=== PATIENT | male | born 1965 | race Caucasian/White ===

== ENCOUNTER 2017-09-06 12:57 | Emergency (ER) | payer BC ==
[2017-09-06 13:54] VITALS: BP 128/77
--- NOTE | 2017-09-06 14:18 | UC ---
Eye Complaint HPI - HPI Summary HPI Summary: BILATERAL EYE REDNESS AND DISCHARGE, LASTING TEN DAYS. INITIALLY HAD CONGESTION , COUGH, AND SORE THROAT, THESE SYMPTOMS RESOLVED BUT EYE REDNESS AND DISCHARGE CONTINUE. NO PAIN WITH EYE MOVEMENT. - History of Current Complaint Chief Complaint: UCEye Stated Complaint: BILAT. EYE IRRITATION Time Seen by Provider: 09/06/17 13:58 Hx Obtained From: Patient, Family/Adjustment Clerk Onset/Duration: Gradual Onset, Lasting Weeks Timing: Intermittent Episode Lasting Severity Initially: Mild Severity Currently: Moderate Location of Injury: Conjunctiva Character: Dull Aggravating Factor(s): Nothing Alleviating Factor(s): Nothing Associated Signs And Symptoms: Positive: Drainage (Purulent) - Risk Factors Penetrating Injury Risk Factor: Negative Acute Glaucoma Risk Factors: Negative - Allergies/Home Medications Allergies/Adverse Reactions: Allergies Allergy/AdvReac Type Severity Reaction Status Date / Time No Known Allergies Allergy Verified 09/06/17 13:49 PMH/Surg Hx/FS Hx/Imm Hx Previously Healthy: Yes - Surgical History Surgical History: Yes Surgery Procedure, Year, and Place: Right Herniorrhaphy - Family History Known Family History: Negative: Blood Disorder - Social History Occupation: Employed Full-time Lives: With Family Alcohol Use: Rare Alcohol Amount: "couple beers a week" Substance Use Type: None Smoking Status (MU): Never Smoked Tobacco - Immunization History Most Recent Influenza Vaccination: no Review of Systems Constitutional: Negative Skin: Negative Eyes: Drainage, Eye Redness ENT: Negative Respiratory: Negative Cardiovascular: Negative Gastrointestinal: Negative Genitourinary: Negative Motor: Negative Neurovascular: Negative Musculoskeletal: Negative Neurological: Negative Psychological: Negative Is Patient Immunocompromised?: No All Other Systems Reviewed And Are Negative: Yes Physical Exam Triage Information Reviewed: Yes Appearance: Well-Appearing, No Pain Distress, Well-Nourished Vital Signs: Initial Vital Signs Temp 97 F 09/06/17 13:49 Pulse 57 09/06/17 13:49 Resp 16 09/06/17 13:49 BP 128/77 09/06/17 13:49 Pulse Ox 99 09/06/17 13:49 Vital Signs Reviewed: Yes Eyes: Positive: Conjunctiva Inflamed, Discharge ENT Exam: Normal ENT: Positive: Normal ENT inspection, Hearing grossly normal, Pharynx normal, TMs normal Dental Exam: Normal Neck exam: Normal Neck: Positive: Supple, Nontender, No Lymphadenopathy Respiratory Exam: Normal Respiratory: Positive: Chest non-tender, Lungs clear, Normal breath sounds, No respiratory distress, No accessory muscle use Cardiovascular Exam: Normal Cardiovascular: Positive: RRR, No Murmur, Pulses Normal Abdominal Exam: Normal Abdomen Description: Positive: Nontender, No Organomegaly Musculoskeletal Exam: Normal Musculoskeletal: Positive: Strength Intact, ROM Intact Neurological Exam: Normal Psychological Exam: Normal Skin Exam: Normal Eye Complaint Course/Dx - Differential Dx/Diagnosis Differential Diagnosis/HQI/PQRI: Conjunctivitis Provider Diagnoses: BILATERAL CONJUNCTIVITIS Discharge - Discharge Plan Condition: Stable Disposition: HOME Prescriptions: Tobramycin 0.3% OPHTH.EVAN* 1 drop BOTH EYES Q4H #1 btl Patient Education Materials: Conjunctivitis (ED) Forms: *Work Release Referrals: [facility] [Outside] No Primary Care Phys,NOPCP [Primary Care Provider] - Oleksandr Coffey MD [Medical Doctor] -
== END 2017-09-06 14:21 | disposition home or self-care (01) ==
LOC: UCCORT 12:57
DX: H10.33 Unspecified acute conjunctivitis, bilateral (principal)
CPT/HCPCS: 99202; G0463

== ENCOUNTER 2018-01-20 13:21 | Emergency (ER) | payer BC ==
--- NOTE | 2018-01-20 13:55 | UC ---
Respiratory Complaint HPI - HPI Summary HPI Summary: Pt presents with midsternal chest "soreness" for the last 3 weeks. He was seen by a provider (not his PCP) for a work physical where an EKG, UA, and basic labwork were done as part of the requirements. The EKG was normal per him, but he was told the labwork indicated that he "may be fighting an infection" and was told to be seen by his PCP. His PCP is booking at least 1 month out, so he came to . He tells me that he does a lot of heavy lifting and moving of large objects - and about 3 weeks ago remembers being particularly busy doing these types of activities, but denies specific injury. He describes the sensation as a "soreness" and says it is not painful, just feels achy. Denies fever, chills, sore throat, SOB, chest pain, MONSALVE, abdominal pain, n/v/d/c. He feels well otherwise. - History of Current Complaint Stated Complaint: UPPER RESPIRATORY Time Seen by Provider: 01/20/18 13:55 Hx Obtained From: Patient Onset/Duration: Gradual Onset Severity Initially: Mild Severity Currently: Mild Pain Intensity: 2 Pain Scale Used: 0-10 Numeric - Allergies/Home Medications Allergies/Adverse Reactions: Allergies Allergy/AdvReac Type Severity Reaction Status Date / Time No Known Allergies Allergy Verified 01/20/18 13:55 Home Medications: Home Medications NK [No Home Medications Reported] 01/20/18 [History Confirmed 01/20/18] PMH/Surg Hx/FS Hx/Imm Hx - Additional Past Medical History Additional PMH: None Previously Healthy: Yes - Surgical History Surgical History: Yes Surgery Procedure, Year, and Place: Right Herniorrhaphy - Family History Known Family History: Negative: Blood Disorder - Social History Occupation: Employed Full-time Lives: With Family Alcohol Use: Rare Alcohol Amount: "couple beers a week" Substance Use Type: None Smoking Status (MU): Never Smoked Tobacco - Immunization History Most Recent Influenza Vaccination: no Review of Systems Constitutional: Negative Skin: Negative Eyes: Negative ENT: Negative Respiratory: Negative Cardiovascular: Negative Gastrointestinal: Negative Genitourinary: Negative Neurovascular: Negative Musculoskeletal: Other: - Chest "soreness" Neurological: Negative Psychological: Negative All Other Systems Reviewed And Are Negative: Yes Physical Exam - Summary Physical Exam Summary: GENERAL: NAD. WDWN. No pain distress. SKIN: No rashes, sores, ulcers, masses, lesions. HEENT: Head: AT/NC Eyes: PERRLA. EOM intact. Conjunctiva clear without inflammation or discharge. Ears: Hearing grossly normal. TMs intact, no bulging, erythema, or edema. Nose: Nasal mucosa pink and moist. NTTP maxillary and frontal sinus. Throat: Posterior oropharynx without exudates, erythema, or tonsillar enlargement. Uvula midline. NECK: Supple. Nontender. No lymphadenopathy. CHEST: CTAB. No r/r/w. No accessory muscle use. Breathing comfortably and in no distress. CV: RRR. Without m/r/g. Pulses intact. Brisk cap refill. ABDOMEN: Soft. NTTP. No distention or guarding., No organomegaly. No CVA tenderness. Bowel sounds present x4. MSK: FROM and 5/5 strength B/L UEs and LEs. NTTP over area of chest "soreness" NEURO: Alert. CN II-XII grossly intact. PSYCH: Age appropriate behavior. Triage Information Reviewed: Yes Respiratory Course/Dx - Course Course Of Treatment: CXR: IMPRESSION: No active cardiopulmonary disease is noted. I am unsure the etiology of his chest "soreness", but given his prolonged symptoms, healthy PMH, recent WNL EKG, and no cardiac risk factors - I advised him to schedule a follow up with his PCP for his next available appointment. - Differential Dx/Diagnosis Provider Diagnoses: Chest "soreness" Discharge - Sign-Out/Discharge Documenting (check all that apply): Discharge/Admit/Transfer - Discharge Plan Condition: Stable Disposition: HOME Referrals: Evangelist Paniagua MD [Primary Care Provider] - Additional Instructions: If you develop a fever, shortness of breath, chest pain, new or worsening symptoms - please call your PCP or go to the ED. 1) Please schedule a follow up appointment with your PCP regarding your ongoing chest soreness and recent labwork - Billing Disposition and Condition Condition: STABLE Disposition: HOME
[2018-01-20 13:58] VITALS: BP 117/65
--- NOTE | 2018-01-20 14:30 | RAD ---
Indication: Cough. 2 views of the chest including dual energy PA views demonstrates no mediastinal shift. Heart is of normal size and configuration. Lung leach are clear. IMPRESSION: No active cardiopulmonary disease is noted.
== END 2018-01-20 14:53 | disposition home or self-care (01) ==
LOC: UCCORT 13:21
DX: R07.89 Other chest pain (principal)
CPT/HCPCS: 71046; 99211; G0463

== ENCOUNTER 2019-01-08 07:42 | Emergency (ER) | payer BC ==
[2019-01-08 08:12] VITALS: BP 118/72
--- NOTE | 2019-01-08 08:21 | UC ---
Respiratory Complaint HPI - HPI Summary HPI Summary: 53 -year-old male had cold symptoms presently one month ago. The only thing that did not resolve was a dry cough. He states over the past week he has felt more chest congestion and a productive cough of sputum. He denies any shortness of breath sitting and talking with me. He states he feels some mid chest tightness when he coughs. He denies any recent fever or chills. He does work as a computer equipment repairer. - History of Current Complaint Chief Complaint: UCGeneralIllness Stated Complaint: COUGH,CONGESTION Time Seen by Provider: 01/08/19 08:16 Hx Obtained From: Patient Onset/Duration: Gradual Onset Timing: Intermittent Episodes Severity Initially: Mild Severity Currently: Mild Pain Intensity: 0 Character: Cough: Productive - Productive cough up yellow sputum. Alleviating Factors: Nothing Associated Signs And Symptoms: Positive: URI - Upper Respiratory illness approximately one month ago with a dry cough that did not resolve. States the cough and chest congestion returned over the past week.. Negative: Dyspnea, Fever, Chills, Pleuritic Chest Pain, Wheezing - No pain on deep inspiration - Risk Factors Pulmonary Embolism Risk Factors: Negative Cardiac Risk Factors: Negative Pseudomonas Risk Factors: Negative Tuberculosis Risk Factors: Negative - Allergies/Home Medications Allergies/Adverse Reactions: Allergies Allergy/AdvReac Type Severity Reaction Status Date / Time No Known Allergies Allergy Verified 01/08/19 08:12 PMH/Surg Hx/FS Hx/Imm Hx Previously Healthy: Yes Respiratory History: Other - Patient states he has been told he has pre-asthma. - Surgical History Surgical History: Yes Surgery Procedure, Year, and Place: Right Herniorrhaphy - Family History Known Family History: Positive: Other - Both parents of cancer. Negative: Blood Disorder - Social History Occupation: Employed Full-time - Works as a computer equipment repairer. Alcohol Use: Rare Alcohol Amount: "couple beers a week" Substance Use Type: None Smoking Status (MU): Never Smoked Tobacco - Immunization History Most Recent Influenza Vaccination: no Review of Systems All Other Systems Reviewed And Are Negative: Yes Respiratory: Positive: Cough - Productive cough with yellow sputum. Chest congestion and tightness with coughing. No shortness of breath. Pain on deep inspiration. Is Patient Immunocompromised?: No Physical Exam Triage Information Reviewed: Yes Appearance: Well-Appearing, No Pain Distress, Well-Nourished Vital Signs: Initial Vital Signs Temp 98.1 F 01/08/19 08:07 Pulse 60 01/08/19 08:07 Resp 16 01/08/19 08:07 BP 118/72 01/08/19 08:07 Pulse Ox 99 01/08/19 08:07 Vital Signs Reviewed: Yes Eye Exam: Normal ENT Exam: Normal Neck: Positive: Supple, Nontender, No Lymphadenopathy Respiratory: Positive: Lungs clear, Normal breath sounds, No respiratory distress, No accessory muscle use Cardiovascular: Positive: RRR, No Murmur, Pulses Normal, Brisk Capillary Refill Abdomen Description: Positive: Nontender, No Organomegaly, Soft Bowel Sounds: Positive: Present Musculoskeletal Exam: Normal Neurological Exam: Normal Psychological Exam: Normal Skin Exam: Normal Respiratory Course/Dx - Course Course Of Treatment: Pt comfortable here. Chest x-ray negative. 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 I advised him to follow up with his primary care provider in the next week if no improvement in symptoms or if worsening symptoms and that he could try Claritin 10 mg daily for a week and see if that helps some of the symptoms. Patient is agreeable to this plan of action. - Differential Dx/Diagnosis Provider Diagnosis: Chronic cough Discharge - Sign-Out/Discharge Documenting (check all that apply): Patient Departure All imaging exams completed and their final reports reviewed: Yes - Discharge Plan Condition: Good Disposition: HOME Patient Education Materials: Chronic Cough (ED) Referrals: Evangelist Paniagua MD [Primary Care Provider] - Additional Instructions: "Increase fluids, definite follow-up with your primary care provider in one week if no improvement in symptoms and especially if symptoms worsen. Can try [id number] Claritin once a day and see if that helps some oif the symptoms. - Billing Disposition and Condition Condition: GOOD Disposition: Home - Attestation Statements Provider Attestation: Per institutional requirements, I have reviewed the chart, however, I was not consulted specifically or made aware of this patient by the midlevel provider. I did not personally evaluate, interact with , or disposition this patient.
== END 2019-01-08 09:35 | disposition home or self-care (01) ==
LOC: UCCORT 07:42
DX: R05 Cough (principal); R09.89 Other specified symptoms and signs involving the circulatory and respiratory systems
CPT/HCPCS: 71045; 71046; 99211; G0463